=== PATIENT | female | born 1950 | race Native Hawaiian/Other Pacific Islander ===

== ENCOUNTER 2017-12-25 20:26 | Emergency (ER) | payer OTHER ==
[~2017-12-25] VITALS: Ht 154.9 cm; Wt 81.6 kg
[2017-12-25] MEDS ORDERED: CARV25TA PO (20:46)
[2017-12-25] MEDS ORDERED: CITRACA2 PO (20:47)
[2017-12-25 21:23] LABS: PLATELET COUNT 338 K/uL (152-353)
[2017-12-25 21:34] LABS: POTASSIUM 4.2 mmol/L (3.6-5.2); SODIUM 139 mmol/L (136-145)
[2017-12-25 22:29] VITALS: BP 154/79; TEMP 97.6
== END 2017-12-25 22:30 | disposition home or self-care (01) ==
LOC: ED 20:26
DX: F41.8 Other specified anxiety disorders (principal); I10 Essential (primary) hypertension
CPT/HCPCS: 36415; 80053; 81000; 84484; 85027; 93005; 99283

== ENCOUNTER 2017-12-26 19:03 | Emergency (ER) | payer OTHER ==
[~2017-12-26] VITALS: Ht 154.9 cm; Wt 81.6 kg
[~2017-12-26 19:03] MED LIST: CARV25TA PO; CITRACA2 PO
[2017-12-26 19:25] VITALS: BP 174/72; TEMP 98.1
== END 2017-12-26 21:56 | disposition home or self-care (01) ==
LOC: ED 19:03
DX: I10 Essential (primary) hypertension (principal)
CPT/HCPCS: 96372; 99284; J2060